=== PATIENT | male | born 1965 | race Two or more races ===

== ENCOUNTER 2020-10-17 12:50 | Emergency (ER) | payer OTHER ==
[~2020-10-17] VITALS: Ht 175.3 cm; Wt 84.8 kg
== END 2020-10-17 18:01 | disposition home or self-care (01) ==
LOC: ER 12:50
DX: M79.18 Myalgia, other site (principal); B34.9 Viral infection, unspecified; R53.83 Other fatigue; Z03.818 Encounter for observation for suspected exposure to other biological agents ruled out